=== PATIENT | male | born 1965 | race Caucasian/White ===

== ENCOUNTER 2022-01-09 09:56 | Emergency (ER) | payer BC, OTHER ==
[~2022-01-09] VITALS: Ht 177.8 cm; Wt 93.0 kg
--- NOTE | 2022-01-09 10:07 | NUR ---
To ER bed 09, "Right Hip Pain xcouple weeks.No fall/trauma or injury just started hurting Also noticed BLE/ankle swelling", aaox3, breathing even and non labored, awaiting md burger
--- NOTE | 2022-01-09 10:40 | NUR ---
TECH AT BEDSIDE FOR EKG
[2022-01-09 11:15] LABS: BASOPHILS # (AUTO) 0.1 K/uL (0.0-0.2); BASOPHILS % (AUTO) 0.9 % (0.0-2.0); HEMATOCRIT 37 % (39-51); HEMOGLOBIN 11.9 g/dL (13.5-17.5); LYMPHOCYTES % (AUTO) 34.8 % (20.0-44.0); MEAN CORPUSCULAR HGB CONC 32 g/dl (31.0-36.0); MEAN CORPUSCULAR VOLUME 81 fL (80-96); MONOCYTES # (AUTO) 0.7 K/uL (0.1-1.30); MONOCYTES % (AUTO) 12.9 % (2.0-12.0); NEUTROPHILS # (AUTO) 2.7 K/uL (1.8-8.9); NEUTROPHILS % (AUTO) 47.4 % (43.0-81.0); PLATELET COUNT (AUTO) 222 K/uL (150-450); WHITE BLOOD COUNT (AUTO) 5.7 K/uL (4.3-11.0)
[2022-01-09 11:26] LABS: CALCIUM, SERUM 8.2 mg/dL (8.5-10.1); CREATININE 0.8 mg/dL (0.6-1.3); POTASSIUM 3.7 mmol/L (3.5-5.1)
[2022-01-09 11:40] LABS: BILIRUBIN,DIRECT 0.1 mg/dL (0.0-0.2); BILIRUBIN,TOTAL 0.3 mg/dL (0.2-1.0); TOTAL PROTEIN, SERUM 6.4 g/dL (6.4-8.2)
--- NOTE | 2022-01-09 12:05 | NUR ---
US TECH AT BEDSIDE FOR ULTRASOUND
[2022-01-09 15:19] VITALS: BP 131/80
--- NOTE | 2022-01-09 15:19 | NUR ---
Patient discharged to home in stable condition. Written and verbal after care instructions given. Patient verbalizes understanding of instruction.
== END 2022-01-09 15:19 | disposition home or self-care (01) ==
LOC: ER 10:03
DX: R60.0 Localized edema (principal)
CPT/HCPCS: 36415; 73502; 80048-TC; 80076-TC; 83880; 85025-TC; 93970-TC